=== PATIENT | male | born 1935 | race Two or more races ===

== ENCOUNTER 2016-08-14 09:15 | Outpatient (RCR) | payer OTHER ==
[~2016-08-14 09:15] MED LIST: FOSAMAX70 MG ORAL; VIT D PO; ZOCOR20 M1 ORAL; methotrexate PO
== END 2016-09-13 | disposition home or self-care (01) ==
LOC: PTY 09:15
DX: M81.0 Age-related osteoporosis without current pathological fracture (principal)

== ENCOUNTER 2016-09-18 09:55 | Outpatient (RCR) | payer OTHER | END 2016-10-13 | disposition home or self-care (01) | LOC: PTY 09:55 | DX: Z47.1 Aftercare following joint replacement surgery (principal); R53.1 Weakness; M81.0 Age-related osteoporosis without current pathological fracture; Z96.653 Presence of artificial knee joint, bilateral ==

== ENCOUNTER 2016-10-25 09:55 | Outpatient (RCR) | payer OTHER | END 2016-11-13 | disposition home or self-care (01) | LOC: PTY 09:55 | DX: M81.0 Age-related osteoporosis without current pathological fracture (principal); R26.9 Unspecified abnormalities of gait and mobility; M19.90 Unspecified osteoarthritis, unspecified site; Z96.652 Presence of left artificial knee joint; M25.561 Pain in right knee; M25.562 Pain in left knee; G89.29 Other chronic pain ==

== ENCOUNTER → 2016-12-14 | Outpatient (RCR) | payer OTHER | END | disposition home or self-care (01) | LOC: PTY 11-14 09:00 | DX: R53.1 Weakness (principal); Z96.652 Presence of left artificial knee joint; Z91.81 History of falling; M19.90 Unspecified osteoarthritis, unspecified site; Z96.651 Presence of right artificial knee joint ==

== ENCOUNTER 2016-12-27 07:48 | Outpatient (RCR) | payer OTHER | END 2017-01-13 | disposition home or self-care (01) | LOC: PTY 07:48 | DX: R53.1 Weakness (principal); Z96.652 Presence of left artificial knee joint; M81.0 Age-related osteoporosis without current pathological fracture ==

== ENCOUNTER 2017-01-08 08:55 | Outpatient (RCR) | payer OTHER | END 2017-01-13 | disposition home or self-care (01) | LOC: PTY 08:55 | DX: M81.0 Age-related osteoporosis without current pathological fracture (principal); M19.90 Unspecified osteoarthritis, unspecified site; Z96.652 Presence of left artificial knee joint; M25.561 Pain in right knee; M25.562 Pain in left knee; G89.29 Other chronic pain; R53.1 Weakness ==

== ENCOUNTER 2017-02-12 09:00 | Outpatient (RCR) | payer OTHER | END 2017-02-13 | disposition home or self-care (01) | LOC: PTY 09:00 | DX: R53.1 Weakness (principal); Z96.652 Presence of left artificial knee joint ==

== ENCOUNTER 2017-03-14 10:00 | Outpatient (RCR) | payer OTHER | END 2017-03-15 | disposition home or self-care (01) | LOC: PTY 10:00 | DX: R53.1 Weakness (principal) ==

== ENCOUNTER 2017-04-30 08:45 | Outpatient (RCR) | payer OTHER | END 2017-05-16 | disposition home or self-care (01) | LOC: PTY 08:45 | DX: R53.1 Weakness (principal) ==

== ENCOUNTER 2017-07-03 09:45 | Outpatient (RCR) | payer OTHER | END 2017-07-14 | disposition home or self-care (01) | LOC: PTY 09:45 | DX: R26.89 Other abnormalities of gait and mobility (principal); Z96.652 Presence of left artificial knee joint ==

== ENCOUNTER 2017-07-18 09:45 | Outpatient (RCR) | payer OTHER | END 2017-08-13 | disposition home or self-care (01) | LOC: PTY 09:45 | DX: R26.89 Other abnormalities of gait and mobility (principal); Z96.652 Presence of left artificial knee joint ==

== ENCOUNTER 2017-08-22 09:00 | Outpatient (RCR) | payer OTHER | END 2017-09-13 | disposition home or self-care (01) | LOC: PTY 09:00 | DX: R26.89 Other abnormalities of gait and mobility (principal); Z96.652 Presence of left artificial knee joint ==